=== PATIENT | female | born 1960 ===

== ENCOUNTER 2017-11-06 08:35 | Emergency (ER) | payer OTHER ==
[2017-11-06] MEDS ORDERED: Lidocaine 1% Inj (20ml) IJ STA (08:52)
[2017-11-06 09:05] VITALS: O2SAT 99
--- NOTE | 2017-11-06 09:27 | ED PDOC ---
Arrival/HPI - General Chief Complaint: Abnormal Skin Integrity Time Seen by Provider: 11/06/17 08:39 - History of Present Illness Narrative History of Present Illness (Text): 57 year old female presents with skin laceration on left shoulder. She reports that glass fell onto her shoulder causing the laceration 30 minutes before she arrived at the ED. On presentation the wound is clean and able to approximate. She also a minor abrasion on her left anterior shoulder. Past Medical History - Provider Review Nursing Documentation Reviewed: Yes - Infectious Disease Hx of Infectious Diseases: None - Reproductive Menopause: Yes - Psychiatric Hx Substance Use: No - Anesthesia Hx Anesthesia: No Family/Social History - Physician Review Nursing Documentation Reviewed: Yes Family/Social History: Unknown Family HX Smoking Status: Unknown If Ever Smoked Hx Alcohol Use: No Hx Substance Use: No Allergies/Home Meds Allergies/Adverse Reactions: Allergies No Known Allergies Allergy (Verified 11/06/17 08:51) Home Medications: Home Meds Medication Instructions Recorded Confirmed No Known Home Med 11/06/17 11/06/17 Review of Systems - Physician Review All systems were reviewed & negative as marked: Yes - Review of Systems Constitutional: Normal Eyes: Normal ENT: Normal Respiratory: Normal Cardiovascular: Normal Gastrointestinal: Normal Genitourinary Female: Normal Musculoskeletal: Other (left posterior shoulder tenderness) Skin: Laceration (left shoulder), Other (left anterior shoulder abrasion) Neurological: Normal Physical Exam Vital Signs Reviewed: Yes Vital Signs Temp Pulse Resp BP Pulse Ox 11/06/17 10:16 98 F 75 19 127/52 L 99 11/06/17 08:44 99.4 F 86 18 130/82 99 Temperature: Afebrile Blood Pressure: Normal Pulse: Regular Respiratory Rate: Normal Appearance: Positive for: Well-Appearing Pain Distress: Mild Mental Status: Positive for: Alert and Oriented X 3 - Systems Exam Head: Present: Atraumatic, Normocephalic Pupils: Present: PERRL Extroacular Muscles: Present: EOMI Mouth: Present: Moist Mucous Membranes Nose (External): Present: Atraumatic Neck: Present: Normal Range of Motion Respiratory/Chest: Present: Clear to Auscultation Cardiovascular: Present: Regular Rate and Rhythm Abdomen: Present: Normal Bowel Sounds. No: Tenderness, Distention Back: Present: Normal Inspection Upper Extremity: Present: Normal Inspection, Normal ROM, NORMAL PULSES Lower Extremity: Present: Normal Inspection, NORMAL PULSES, Normal ROM Neurological: Present: GCS=15, CN II-XII Intact, Speech Normal, Motor Func Grossly Intact Skin: Present: Warm, Dry, Normal Color, Laceration (left shoulder), Abrasion ( left anterior shoulder) Psychiatric: Present: Alert, Oriented x 3, Normal Insight, Normal Concentration Medical Decision Making ED Course and Treatment: Impression: 57 year old female presents with left shoulder laceration and left anterior shoulder abrasion. Assessment: Laceration Plan: Laceration was stitched with 3 4-0 vicryl sutures. Patient also mentioned left posterior shoulder pain but refused X ray. - Medication Orders Current Medication Orders: Discontinued Medications Lidocaine HCl (Lidocaine 1% (20ml)) 10 ml IJ STAT STA Stop: 11/06/17 08:53 Last Admin: 11/06/17 09:23 Dose: 5 ml - Procedure PROCEDURE NOTE (Text): Procedure Name: Laceration Repair Indication: Approximate laceration Location: [facility] Pre-Procedure Diagnosis: Laceration Post-Procedure Diagnosis: Repaired Laceration Informed consent was obtained before procedure started. PROCEDURE: The area was prepped and draped in the usual sterile fashion. Local anesthesia was achieved using 5cc of Lidocaine 1%. The wound was copiously irrigated. 3 4- 0 Vicryl interrupted sutures were placed. Estimated blood loss was less than 0.5 mL. A dressing was applied to the area and anticipatory guidance, as well as standard post-procedure care, was explained. Return precautions are given. The patient tolerated the procedure well without complications. Follow-up visit set for suture removal and evaluation of the laceration. 11/06/17 09:38 - PA / SENIOR BRANCH MANAGER / Resident Statement MICAH has reviewed & agrees with the documentation as recorded. MICAH has examined the patient and agrees with the treatment plan. Disposition/Present on Arrival - Present on Arrival Any Indicators Present on Arrival: No History of DVT/PE: No History of Uncontrolled Diabetes: No Urinary Catheter: No History of Decub. Ulcer: No History Surgical Site Infection Following: None - Disposition Have Diagnosis and Disposition been Completed?: Yes Diagnosis: Laceration Disposition: HOME/ ROUTINE Disposition Time: 09:32 Patient Plan: Discharge Condition: STABLE Additional Instructions: CHAST[facility] LA, thank you for letting us take care of you today. Your provider was Stephany Bishop MD and you were treated for LACERATION ON (R) SHOULDER. The emergency medical care you received today was directed at your acute symptoms. Left shoulder laceration was stitched with 3 4-0 sutures. It may take several days for your symptoms to resolve. Return to the Emergency Department if your symptoms worsen, do not improve, or if you have any other problems. Please contact your doctor, Dr. Heaton, for follow up appointment to remove sutures in 1 week. Return to [facility] or have Dr. Heaton remove sutures. Take over the counter tylenol or ibuprofen for pain control. Bring any paperwork you were given at discharge with you along with any medications you are taking to your follow up visit. Our treatment cannot replace ongoing medical care by a primary care provider outside of the emergency department. Thank you for allowing the [facility] team to be part of your care today. Referrals: Shiv Heaton MD [Primary Care Provider] - Follow up with primary Forms: [facility] ([place])
[2017-11-06 10:17] VITALS: BP 127/52; PULSE 75; RESP 19; TEMP 98
== END 2017-11-06 10:16 | disposition home or self-care (01) ==
LOC: ED 08:35
DX: S41.012A Laceration without foreign body of left shoulder, initial encounter (principal); W25.XXXA Contact with sharp glass, initial encounter